=== PATIENT | male | born 1965 | race African-American/Black ===

== ENCOUNTER 2019-03-21 21:56 | Inpatient (IN) ==
[2019-03-21] MEDS ORDERED: DUONEB (A & A) INH ONE ×3 (22:10→23:02)
[2019-03-21 22:20] LABS: URINE SOURCE CLEAN CATCH
[2019-03-21 22:28] LABS: BILIRUBIN URINE NEGATIVE (NEGATIVE); BLOOD URINE MODERATE (NEGATIVE); COLOR STRAW; GLUCOSE URINE NEGATIVE (NEGATIVE); KETONE URINE NEGATIVE (NEGATIVE); LEUKOCYTES URINE NEGATIVE (NEGATIVE); NITRITE URINE NEGATIVE (NEGATIVE); PH URINE 6.5; PROTEIN URINE 30 mg/dL (NEGATIVE); SP GRAVITY URINE 1.007; TURBIDITY URINE CLEAR (CLEAR); UROBILINOGEN URINE NORMAL (NORMAL)
[2019-03-21 22:29] LABS: UR EPITHELIAL CELLS <10 /HPF (<10); URINE BACTERIA NEGATIVE /HPF; URINE WBC <10 /HPF (<10)
[2019-03-21] MEDS ORDERED: SOLU-MEDROL IV ONE (23:02)
[2019-03-21] MEDS ORDERED: PULMICORT INH ONE (23:02)
[2019-03-22] LABS: ALLEN TEST YES; BE -0.4 mmoll (-3.0-3.0); BLOOD TYPE ARTERIAL; HCO3-(ACT) 24.5 mmoll (20.0-26.0); METHB 0.4 % (0.0-1.5); O2(CT) 17.9 mL/dL (15.0-23.0); O2HB 91.7 % (95.0-99.0); PCO2(98.6) 45 mmHg (35-45); PO2(98.6) 61 mmHg (60-100); SAMPLE BLOOD; SAO2 95.5 % (95.0-100.0); THB 13.9 g/dL (11.5-17.4); pH(98.6) 7.36 (7.35-7.45)
[2019-03-22 00:01] LABS: MODALITY CANNULA
[2019-03-22 01:25] LABS: BASO# 0.03 X1000 (0.0-0.2); BASO% 0.5 % (0.0-0.8); EOS% 7.2 % (0.0-10.0); HEMATOCRIT 41.2 % (42.0-52.0); HEMOGLOBIN 14.1 g/dL (14.0-18.0); LYMPH# 1.38 X1000 (1.2-3.4); LYMPH% 24.7 % (20.5-51.1); MCH 28.8 PG (27-31); MCHC 34.2 g/dL (33-37); MCV 84.1 FL (81-99); MONO# 0.47 X1000 (0.11-0.59); MONO% 8.4 % (1.7-9.3); MPV 9.9 FL (7.4-10.4); NEUT% 59.2 % (42.2-75.2); PLT 237 X1000 (130-400); RDW 14.1 % (11.5-14.5); WBC 5.58 X1000 (4.8-10.8)
[2019-03-22 01:51] LABS: AGAP 14; ALB/GLOB RATIO 1.4; ALBUMIN 4.5 g/dL (3.5-5.0); ALKALINE PHOSPHATASE 97 U/L (32-122); BUN 11 mg/dL (8-22); CALCIUM 9.7 mg/dL (8.8-10.2); CHLORIDE 104 mmol/L (98-107); COSMO 279; CREATININE 0.8 mg/dL (0.7-1.2); ESTIMATED GFR > 60; GLUCOSE 100 mg/dL (70-104); GOT 31 U/L (10-34); GPT 24 U/L (10-44); POTASSIUM 4.3 mmol/L (3.5-5.1); SODIUM 140 mmol/L (136-145); TCO2 22 mmol/L (25-35); TOTAL BILIRUBIN 0.46 mg/dL (0.20-1.00); TOTAL PROTEIN 7.8 g/dL (6.3-8.3)
--- NOTE | 2019-03-22 02:17 | PROVIDER DOCUMENTATION ---
This chart was entered by Yuliya Rajput Scribe, acting as scribe for Heidi Samaniego MD. HPI-Respiratory General - General Chief Complaint: Shortness of Breath Stated Complaint: BREATHING ISSUES/COPD Time Seen by Provider: 03/21/19 22:27 Source: patient Allergies/Adverse Reactions: Patient Allergies Allergy/AdvReac Type Severity Reaction Status Date / Time Penicillins Allergy Unknown Verified 03/22/19 00:08 Home Medications: Home Medication List Medication Instructions Recorded Confirmed Last Taken Type Albuterol [Albuterol Neb] 1 vial INH Q6HR PRN 03/22/19 03/22/19 Unknown History Amlodipine [Norvasc] 1 tab PO QPM 03/22/19 03/22/19 Unknown History Atorvastatin Calcium [Lipitor] 1 tab PO QPM 03/22/19 03/22/19 Unknown History Levalbuterol Inhaler [Xopenex Hfa] 2 puff INH BID PRN 03/22/19 03/22/19 Unknown History Montelukast [Singulair] 1 tab PO QPM 03/22/19 03/22/19 Unknown History Umeclidinium/Vilanterol [Anoro 1 puff INH DAILY 03/22/19 03/22/19 Unknown History Ellipta 62.5-25 Mcg INH] - History of Present Illness-Resp Nature of Presenting Problem: Pt is 53/M presenting to ED w/ SOB and cough that is worse w/ exertion. He has also has accompanied h/a and chills. He has been receiving breathing treatments, but sts that they are no longer really helping. Pt has COPD and admits to smoking a few cigarettes a day until recently. He is currently an inmate and he states that the retirement is not able to give him the round the clock breathing treatments but he states he takes them as often as he can. He states his cough is mostly dry but sometimes productive with white sticky mucous. Onset/Duration: reports: 3 days ago Timing: reports: still present Cough Quality/Degree: reports: moderate, productive cough (states not a lot of production, but is white and thick when it is.) Episode Frequency: chronic episodes Current Respiratory Medication Therapy: Initiated none Modifying Factors: improves with: exertion Associated Symptoms: reports: cough, heart racing, short of breath. denies: chest pain/soreness Review of Systems - Adult - REVIEW OF SYSTEMS - ADULT Constitutional: reports: see HPI, chills Eyes: reports: no symptoms reported Ears, Nose, Mouth & Throat: reports: no symptoms reported Cardiovascular: denies: chest pain Respiratory: reports: chronic cough, shortness of breath, wheezing Gastrointestinal: reports: no symptoms reported. denies: abdominal pain, diarrhea, nausea, vomiting Genitourinary: reports: no symptoms reported Musculoskeletal: reports: no symptoms reported Integumentary: reports: no symptoms reported Neurological: reports: no symptoms reported. denies: dizziness/vertigo, headache/migraines Psychiatric: reports: no symptoms reported Endocrine: reports: no symptoms reported Hematologic/Lymphatic: reports: no symptoms reported Allergic/Immunologic: reports: no symptoms reported All Other Systems: Reviewed and Negative Past History - Adult - PAST MEDICAL HISTORY-ADULT Review of Records: reports: Old Records Reviewed, Nursing Assessment Review, Medications Reviewed, Social history reviewed & non-contributory. Cardiovascular: reports: HTN, other (hypercholesterolemia) Respiratory: reports: asthma, COPD Gastrointestinal: reports: GERD Psychiatric: reports: anxiety, depression - PRIOR SURGERIES/PROCEDURES Surgical/Procedure History: reports: other (right ear). denies: cardiac stent (but has had a heart cath) - PRIOR HOSPITALIZATIONS Prior Hospitalizations: reports: for similar symptoms - IMMUNIZATION STATUS Childhood Immunizations: See Nurse Assessment Flu Vaccine: See Nurse Assessment - FAMILY HISTORY Family History: reviewed, not pertinent - SOCIAL HISTORY Smoking: cigarettes, less than 1 pack/day Substance Use: none/never Alcohol Use Frequency: never Living Situation: other (inmate) Physical Exam-General - PHYSICAL EXAM-ADULT Initial Vital Signs Reviewed: Yes - CONSTITUTIONAL General Appearance: appears well, alert, mild distress - EYES Eyes: PERRL/EOMI, pink conjunctivae - HEAD, EARS, NOSE, MOUTH & THROAT HENMT: normocephalic/atraumatic, moist mucous membranes, normal ENT inspection - NECK Neck: non-tender, full range of motion, supple, normal inspection - RESPIRATORY Respiratory: chest non-tender, respiratory distress (mild), accessory muscle use , wheezing (diffuse moderate wheezing), increased rate (25) - CARDIOVASCULAR Cardiovascular: no murmur, tachycardia (110) - GASTROINTESTINAL (ABDOMEN) Abdominal Exam: normal bowel sounds, non tender, soft - LYMPHATIC Lymphatic: no adenopathy - MUSCULOSKELETAL Back Exam: normal inspection, no vertebral tenderness Extremity: normal range of motion, non-tender, normal gait, normal inspection - SKIN Integumentary: normal color, warm/dry - NEUROLOGIC Neurologic: grossly normal - PSYCHIATRIC Psych/Mental Status: normal mood/affect, oriented x 3 Progress - PLAN OF CARE/RESULTS Progress/Plan/Lab Results: Vital Signs - 8 hr 03/21/19 22:00 03/21/19 22:13 03/21/19 22:15 Temperature 97.7 F Pulse Rate 110 H 103 H 110 H Respiratory Rate 25 H 25 H 25 H Blood Pressure 167/100 135/103 O2 Sat by Pulse Oximetry 96 100 100 03/21/19 22:30 03/21/19 22:33 03/21/19 23:02 Temperature Pulse Rate 115 H 122 H 103 H Respiratory Rate 24 30 H 23 Blood Pressure 159/112 136/112 O2 Sat by Pulse Oximetry 100 99 98 03/21/19 23:30 03/21/19 23:32 03/21/19 23:40 Temperature Pulse Rate 126 H 117 H 117 H Respiratory Rate 24 23 27 H Blood Pressure 123/98 O2 Sat by Pulse Oximetry 100 100 97 03/22/19 00:00 03/22/19 00:02 03/22/19 00:32 Temperature Pulse Rate 130 H 111 H 103 H Respiratory Rate 27 H 24 18 Blood Pressure 123/100 143/99 O2 Sat by Pulse Oximetry 97 96 99 03/22/19 01:20 03/22/19 01:30 03/22/19 01:40 Temperature Pulse Rate 95 H 101 H 106 H Respiratory Rate 21 20 19 Blood Pressure O2 Sat by Pulse Oximetry 100 100 98 03/22/19 01:50 03/22/19 02:00 03/22/19 02:02 Temperature Pulse Rate 105 H 102 H 101 H Respiratory Rate 19 23 19 Blood Pressure 125/101 O2 Sat by Pulse Oximetry 96 96 98 03/22/19 02:10 03/22/19 02:20 03/22/19 02:30 Temperature Pulse Rate 100 H 95 H 88 Respiratory Rate 26 H 21 21 Blood Pressure O2 Sat by Pulse Oximetry 97 99 99 03/22/19 02:32 03/22/19 03:02 03/22/19 03:32 Temperature Pulse Rate 100 H 94 H 84 Respiratory Rate 21 22 20 Blood Pressure 118/90 131/100 150/93 O2 Sat by Pulse Oximetry 99 98 100 03/22/19 04:02 Temperature Pulse Rate 79 Respiratory Rate 16 Blood Pressure 130/85 O2 Sat by Pulse Oximetry 99 Laboratory Results - last 24 hr 03/21/19 03/22/19 03/22/19 22:14 00:36 00:45 WBC 5.58 RBC 4.90 Hgb 14.1 Hct 41.2 L MCV 84.1 MCH 28.8 MCHC 34.2 RDW Std Deviation 14.1 Plt Count 237 MPV 9.9 Immature Gran % (Auto) 0.0 Neut % (Auto) 59.2 Lymph % (Auto) 24.7 [place] % (Auto) 8.4 Eos % (Auto) 7.2 Baso % (Auto) 0.5 Immature Gran # (Auto) 0.00 Neut # (Auto) 3.30 Lymph # (Auto) 1.38 [place] # (Auto) 0.47 Eos # (Auto) 0.40 Baso # (Auto) 0.03 Specimen Type ARTERIAL Sample Site L BRACHIAL pH 7.36 pCO2 45 pO2 61 HCO3 24.5 Base Excess -0.4 Oxyhemoglobin 91.7 L ABG O2 Sat (Calculated) 17.9 ABG O2 Saturation 95.5 ABG Carboxyhemoglobin 3.60 H ABG Methemoglobin 0.4 Kai Test YES A-a O2 Difference 125.0 Total Hemoglobin 13.9 Lactate 1.20 Liter Flow 3.5 Blood Gas Modality CANNULA FiO2 % 34.0 Sodium Potassium Chloride Carbon Dioxide Anion Gap BUN Creatinine Estimated GFR/1.73 m2 BUN/Creatinine Ratio Glucose Calculated Osmolality Calcium Total Bilirubin AST ALT Alkaline Phosphatase Troponin T Hxo-M-Iprdmyoyorm Pept Total Protein Albumin Globulin Albumin/Globulin Ratio Urine Source CLEAN CATCH Urine Color STRAW Urine Turbidity CLEAR Urine pH 6.5 Ur Specific [place] 1.007 Urine Protein 30 A Ur Glucose (Stick) NEGATIVE Ur Ketones (Stick) NEGATIVE Urine Blood MODERATE A Urine Nitrite NEGATIVE Urine Bilirubin NEGATIVE Urobilinogen Dipstick NORMAL Urine Leukocytes NEGATIVE Urine WBC (Auto) <10 Urine RBC (Auto) 10-20 A U Epithel Cells (Auto) <10 Urine Bacteria (Auto) NEGATIVE 03/22/19 03/22/19 03/22/19 00:45 00:45 00:45 WBC RBC Hgb Hct MCV MCH MCHC RDW Std Deviation Plt Count MPV Immature Gran % (Auto) Neut % (Auto) Lymph % (Auto) [place] % (Auto) Eos % (Auto) Baso % (Auto) Immature Gran # (Auto) Neut # (Auto) Lymph # (Auto) [place] # (Auto) Eos # (Auto) Baso # (Auto) Specimen Type Sample Site pH pCO2 pO2 HCO3 Base Excess Oxyhemoglobin ABG O2 Sat (Calculated) ABG O2 Saturation ABG Carboxyhemoglobin ABG Methemoglobin Kai Test A-a O2 Difference Total Hemoglobin Lactate Liter Flow Blood Gas Modality FiO2 % Sodium 140 Potassium 4.3 Chloride 104 Carbon Dioxide 22 L Anion Gap 14 BUN 11 Creatinine 0.8 Estimated GFR/1.73 m2 > 60 BUN/Creatinine Ratio 14 Glucose 100 Calculated Osmolality 279 Calcium 9.7 Total Bilirubin 0.46 AST 31 ALT 24 Alkaline Phosphatase 97 Troponin T < 0.010 Opk-W-Peezlghcndf Pept 121 Total Protein 7.8 Albumin 4.5 Globulin 3.3 Albumin/Globulin Ratio 1.4 Urine Source Urine Color Urine Turbidity Urine pH Ur Specific [place] Urine Protein Ur Glucose (Stick) Ur Ketones (Stick) Urine Blood Urine Nitrite Urine Bilirubin Urobilinogen Dipstick Urine Leukocytes Urine WBC (Auto) Urine RBC (Auto) U Epithel Cells (Auto) Urine Bacteria (Auto) Orders Category Date Time Status CHEST-PORTABLE [RAD] Stat Exams 03/21/19 23:02 Taken ABG [RESP] Routine Lab 03/21/19 23:02 Completed CBC WITH ELECTRONIC DIFF [HEME] Stat Lab 03/22/19 00:45 Completed COMPREHENSIVE METABOLIC PANEL [CHEM] Stat Lab 03/22/19 00:45 Completed PRO B-NATRIURETIC PEPTIDE Stat Lab 03/22/19 00:45 Completed TROPONIN T Stat Lab 03/22/19 00:45 Completed UA [URINALYSIS W/POSS RFLX CULT] [URINALYSIS] Stat Lab 03/21/19 22:14 Completed Albuterol 2.5MG/Ipratrop 0.5MG [Duoneb (A & A)] Med 03/21/19 22:10 Discontinued 3 ml INH NOW ONE Albuterol 2.5MG/Ipratrop 0.5MG [Duoneb (A & A)] Med 03/21/19 22:12 Discontinued 3 ml INH NOW ONE Albuterol 2.5MG/Ipratrop 0.5MG [Duoneb (A & A)] Med 03/21/19 23:02 Discontinued 3 ml INH NOW ONE Budesonide [Pulmicort] Med 03/21/19 23:02 Discontinued 0.5 mg INH NOW ONE Methylprednisolone Sod Succ [Solu-Medrol] Med 03/21/19 23:02 Discontinued 125 mg IV NOW ONE Aerosol Treatments Routine Oth 03/21/19 22:11 Completed Aerosol Treatments Routine Oth 03/21/19 22:12 Completed Aerosol Treatments Routine Oth 03/21/19 23:03 Completed Aerosol Treatments Stat Oth 03/21/19 22:11 Completed Aerosol Treatments Stat Oth 03/21/19 22:12 Completed Aerosol Treatments Stat Oth 03/21/19 23:03 Completed EKG [EKG] Stat Ther 03/21/19 22:04 Ordered Transfer/Admit Order [TRANSFER] Routine Transfer 03/22/19 02:54 Ordered Patient with normal ABGs but poor air movement and wheezing bilaterally moderately. He is still tachypneic and appears to be working to breathe despite multiple breathing treatments and steroids. SPoke to Dr Collier, pet adoption counselor for hospitalist who accepted patient for admission. Further orders to be placed by hospitalist team. Result Diagrams: 03/22/19 00:45 03/22/19 00:45 - EKG 1 Time of EKG reading by physician:: 22:12 EKG Read and Signed by:: Heidi Samaniego EKG Interpretation (*Must complete 3 of following elements*): Abnormal Rate: 102 Rhythm: sinus tachycardia [place]: normal QRS: LVH ST Wave: normal - XRAY 1 XRAY Study: Chest (emphesematous lung changes with possible interstitial edema vs atlectasis) Comparison with other Films: changes noted (worsenined since 10/2015) - CONSULTS/PCP/HOSPITALIST Notification #1 *Consult/PCP/Hospitalist*: Dr Collier Consult Disposition: Admit Departure - Departure Date of Disposition Decision: 03/22/19 Time of Disposition Decision: 03:42 DIAGNOSIS: COPD exacerbation, Tachypnea Disposition: ADMITTED INPATIENT 09 Certified Medical Emergency: Emergent Condition: Stable - Critical Care Note This patient required my direct & personal management of CC.: Yes Total Time (mins): 75 Critical Care Statement: This patient required my direct personal management to treat or rule out processes, the absence of which, could potentiallly result in sudden, clinically significant life or limb threatening deterioration. Attestation - Physician/ MAISHA Attestation Patient care was provided by Advanced Practice Provider:: No The physician spent face to face time with patient:: Yes Advanced Practice Provider documentation review:: Supervising physician onsite and consulted in the evaluation and care of this patient. The physician did have a face to face encounter with the patient. This chart was documented by the indicated scribe, (Yuliya Rajput, [place]) and accurately reflects the services I performed and decisions made by me, Heidi Samaniego MD, as attested by the provider's signature.
--- NOTE | 2019-03-22 04:51 | HISTORY AND PHYSICAL ---
PRIMARY CARE PHYSICIAN: None. CHIEF COMPLAINT: Shortness of breath x3 days. HISTORY OF PRESENTING ILLNESS: A 53-year-old male with a history of COPD and hypertension who is apparently a senior care inmate. Was brought to the emergency department due to worsening shortness of breath. Apparently, he was given his inhalers at the facility, however, he did have any improvement. He was seen in the ED. He was still short of breath and due to his presenting symptoms it was thought that he would need admission for further management. At the time of my examination, patient denied any headache, fever, chills, chest pain, hemoptysis, melena, weight changes, but complained of cough and shortness. PAST MEDICAL HISTORY: Includes COPD, hypertension. PAST SURGICAL HISTORY: Right ear surgery. ALLERGIES: Penicillin. CURRENT MEDICATIONS: He does not recall and the nursing staff will reconcile. SOCIAL HISTORY: Ten pack years history of smoking. History of alcohol use in the past. History of illicit drug use including crack cocaine. FAMILY HISTORY: Positive for coronary disease in father. REVIEW OF SYSTEMS: Fourteen point review of systems as listed in HPI. Other systems negative. PHYSICAL EXAMINATION: GENERAL: Cooperative, friendly male. He is resting comfortably now. VITAL SIGNS: Temperature 97.7 degrees, pulse 110, respirations 25, blood pressure 167/100. HEENT: Atraumatic, normocephalic. Extraocular movements intact. PERRLA. NECK: No masses. CHEST: Scattered wheezes. CARDIOVASCULAR: Regular rate and rhythm. ABDOMEN: Soft, positive bowel sounds. EXTREMITIES: No edema. NEUROLOGIC: Awake, alert, oriented x3. GENITOURINARY: No bladder distention. SKIN: Warm. LABORATORIES AND STUDIES: WBC 5.58, hemoglobin 14.1, hematocrit 41.2, platelets 237,000. Sodium 140, potassium 4.3, chloride 104, CO2 of 22, BUN is 11, creatinine 0.8, glucose 100. Troponin 0.010. ASSESSMENT: This is a 53-year-old male with a history of chronic obstructive pulmonary disease and hypertension who was brought to the emergency department due to worsening shortness of breath for the past 3 days. He was evaluated in the emergency department. Due to his presenting symptoms, he will need admission for further management. 1. Acute chronic obstructive pulmonary disease exacerbation. 2. Hypertension. PLAN: 1. We will admit patient to medical floor with telemetry. 2. Continue with [facility], IV Solu-Medrol, IV antibiotics and mucolytic agent. 3. We will monitor blood pressure. Resume antihypertensive agent. 4. Put patient on DVT prophylaxis with SCD. 5. We will continue to follow, and reassess and make further recommendation based on patient's clinical course. cc: Sandip Collier MD
[2019-03-22] MEDS: LEVAQUIN 500 MG/D5W 500 MG/100 ML IVPB IV SCH (05:33)
[2019-03-22] MEDS: MUCINEX PO SCH ×2 (05:33→16:53)
--- NOTE | 2019-03-22 06:58 | EKG Report ---
Test Performed on : 03/21/2019 10:09:50 PM Test Reason : SOB Blood Pressure : / mmHG Vent. Rate : 102 BPM Atrial Rate : 102 BPM P-R Int : 136 ms QRS Dur : 078 ms QT Int : 326 ms P-R-T Axes : 076 028 076 degrees QTc Int : 424 ms Sinus tachycardia. Otherwise normal ECG When compared with ECG of 06-MAY-2016 23:22, Minimal criteria for Inferior infarct are no longer present Nonspecific T wave abnormality no longer evident in Lateral leads Unconfirmed Result
--- NOTE | 2019-03-22 07:40 | Diag Imaging Result Doc PS360 ---
EXAM: CHEST-PORTABLE INDICATION: COPD TECHNIQUE: One view COMPARISON: 11/19/2015 FINDINGS: The lungs are hyperinflated suggesting COPD, stable. The lungs are grossly clear. There is no discrete pleural fluid collection or pneumothorax. The cardiomediastinal silhouette and central vasculature are grossly unremarkable. IMPRESSION: Stable COPD changes. No definite acute pathology by plain radiograph. Electronically signed by Varun Shay 03/22/2019 7:38 AM
[2019-03-22] MEDS: DUONEB (A & A) INH SCH ×7 (07:45→23:42)
[2019-03-22] MEDS: SOLU-MEDROL IV SCH ×2 (08:45→16:54)
--- NOTE | 2019-03-22 12:03 | PROGRESS NOTE ---
DATE: 03/22/2019 SUBJECTIVE: Today Mr. Thorne continues to complain of shortness of breath and cough. No chest pain. OBJECTIVE: Vital signs: Blood pressure is 144/101, pulse of 95, respiration is 18, temperature 97.9 degrees, patient is saturating 99% on 3 L. On general exam, Mr. Thorne is a 53-year-old gentleman. He was in bed, no distress. Mucosa is pink and moist. Anicteric. Acyanotic. Neck is supple. Respiratory System: Air entry is bilaterally reduced. There is diffuse end-expiratory rhonchi in both lung teran with wheezing. No crackles. There is a prolonged expiratory phase of respiration. Cardiovascular: Regular rate and rhythm. No murmurs, no rubs, no gallops. Gastrointestinal: Abdomen is soft, nontender. Bowel sounds present. Extremities: No pedal edema. Central Nervous System: Patient is awake, alert, and oriented. There is no focal neurological deficit. DIAGNOSTIC STUDIES: A chest x-ray from yesterday shows stable COPD. Laboratory data has been reviewed unremarkable. ASSESSMENT: 1. Acute hypoxemic respiratory failure secondary to chronic obstructive pulmonary disease exacerbation. The patient is on nasal cannula oxygenation. 2. Chronic obstructive pulmonary disease exacerbation. We will continue with standard care, including steroids, antibiotics, and bronchodilation therapy. 3. Hypertension. 4. Current inmate. In general, Mr. Thorne continues to be remarkably symptomatic. We are going to continue with the current antimicrobial and standard of care. Respiratory Therapy is on board. We are going to continue their recommendations, as well. cc: Rajeev Sanabria MD
[2019-03-22] MEDS: NORVASC PO SCH (21:34)
[2019-03-22] MEDS: LIPITOR PO SCH (21:34)
[2019-03-22] MEDS: SINGULAIR PO SCH (21:34)
[2019-03-23] MEDS: SOLU-MEDROL IV SCH ×3 (00:02→17:38)
[2019-03-23] MEDS: DUONEB (A & A) INH SCH ×6 (03:20→22:30)
[2019-03-23] MEDS: LEVAQUIN 500 MG/D5W 500 MG/100 ML IVPB IV SCH (04:03)
[2019-03-23] MEDS: MUCINEX PO SCH ×2 (04:48→17:38)
[2019-03-23 07:46] LABS: BASO# 0.01 X1000 (0.0-0.2); BASO% 0.1 % (0.0-0.8); HEMATOCRIT 41.1 % (42.0-52.0); HEMOGLOBIN 14.1 g/dL (14.0-18.0); IMM GRAN# 0.04 X1000 (0.0-0.04); IMM GRAN% 0.3 % (0.0-0.5); LYMPH# 0.85 X1000 (1.2-3.4); LYMPH% 5.9 % (20.5-51.1); MCH 28.9 PG (27-31); MCHC 34.3 g/dL (33-37); MCV 84.2 FL (81-99); MONO# 0.55 X1000 (0.11-0.59); MONO% 3.8 % (1.7-9.3); MPV 10.4 FL (7.4-10.4); NEUT# 12.97 X1000 (1.4-6.5); NEUT% 89.9 % (42.2-75.2); PLT 257 X1000 (130-400); RBC 4.88 XMIL (4.7-6.1); RDW 14.1 % (11.5-14.5); WBC 14.42 X1000 (4.8-10.8)
[2019-03-23 08:02] LABS: AGAP 11; BUN 33 mg/dL (8-22); CALCIUM 9.6 mg/dL (8.8-10.2); CHLORIDE 101 mmol/L (98-107); COSMO 280; CREATININE 1.1 mg/dL (0.7-1.2); ESTIMATED GFR > 60; GLUCOSE 140 mg/dL (70-104); POTASSIUM 5.2 mmol/L (3.5-5.1); SODIUM 135 mmol/L (136-145); TCO2 23 mmol/L (25-35)
[2019-03-23 08:22] LABS: BANDS 4 % (0-1); LYMPHS 6 % (21-51); MONO 4 % (1-9); SEGS 86 % (42-75)
--- NOTE | 2019-03-23 15:03 | PROGRESS NOTE ---
DATE: 03/23/2019 SUBJECTIVE: Today, Mr. Thorne refers to be doing fairly the same still coughing and having some wheezing. OBJECTIVE: His current vitals show blood pressure 113/74, pulse of 93, respirations 16, and temperature 97.9 degrees.General: Mr. Thorne is a 53-year-old gentleman. He is in bed. He was getting a nebulization treatment. HEENT: Mucosa is pink and moist. Anicteric. Acyanotic. Neck: Supple. Chest: Air entry is bilaterally reduced. There is still diffuse expiratory rhonchi and wheezing. Cardiovascular: Regular rate and rhythm. Abdomen: Soft. Extremities: No pedal edema. DIRECTOR DIGITAL ADVERTISING: Patient is awake, alert, and oriented. LABORATORY DATA: WBC is 14.42, hemoglobin is 14.1, and platelet count of 257,000. Chemistry is also reviewed, potassium is 5.2. Rest of chemistry is unremarkable. IMAGING STUDIES: No new imaging studies today. MEDICATIONS: The patient's medications have all been reviewed. ASSESSMENT: 1. Acute hypoxemic respiratory failure secondary to COPD exacerbation with ongoing tobacco use. 2. Hypertension, currently controlled . The patient seems to be showing some steady progress. We are going to continue with steroids, antibiotics, bronchodilation therapy, and also on incentive spirometer. He has been advised to sit up more in the chair and walk around to get the lungs expanded. cc: Rajeev Sanabria MD MTDD
[2019-03-23] MEDS: LIPITOR PO SCH (21:35)
[2019-03-23] MEDS: SINGULAIR PO SCH (21:35)
[2019-03-23] MEDS: NORVASC PO SCH (21:35)
[2019-03-24] MEDS: SOLU-MEDROL IV SCH ×3 (01:11→17:44)
[2019-03-24] MEDS: DUONEB (A & A) INH SCH ×6 (03:41→23:20)
[2019-03-24] MEDS: LEVAQUIN 500 MG/D5W 500 MG/100 ML IVPB IV SCH (04:15)
[2019-03-24] MEDS: MUCINEX PO SCH ×2 (04:15→17:44)
[2019-03-24 10:46] LABS: AGAP 11; ALBUMIN 3.9 g/dL (3.5-5.0); BUN 29 mg/dL (8-22); CALCIUM 9.3 mg/dL (8.8-10.2); CHLORIDE 101 mmol/L (98-107); COSMO 287; CREATININE 0.9 mg/dL (0.7-1.2); ESTIMATED GFR > 60; GLUCOSE 189 mg/dL (70-104); PHOSPHORUS 2.3 mg/dL (2.7-4.5); POTASSIUM 4.3 mmol/L (3.5-5.1); SODIUM 138 mmol/L (136-145); TCO2 26 mmol/L (25-35)
--- NOTE | 2019-03-24 14:18 | PROGRESS NOTE ---
DATE: 03/24/2019 SUBJECTIVE: This morning, Mr. Thorne refers to be feeling a little better. He thinks his shortness of breath is improving. He was able to go and take a shower today. OBJECTIVE: Vital signs: Blood pressure is 131/77, pulse, respiration is 18, temperature 97.9 degrees patient is saturating 100% on room air. On general exam, Mr. Thorne is a 53-year-old gentleman. He is in bed in no distress. Mucosa is pink and moist. Anicteric. Acyanotic. Neck is supple. Respiratory System: Air entry is bilaterally reduced. There are still diffuse expiratory rhonchi and wheezing. There is prolonged expiratory phase of respiration, but there are no crackles. Cardiovascular: Regular rate and rhythm. No murmurs, no rubs, no gallops. Gastrointestinal: Abdomen is soft, nontender. Bowel sounds present. Extremities: No pedal edema. Central Nervous System: Patient is awake, alert, and oriented. There is no focal neurological deficit. DIAGNOSTIC STUDIES: No CBC for today. Chemistry looks unremarkable. No new imaging studies. MEDICATION: Patient's medications have all been reviewed today and no changes. ASSESSMENT: 1. Acute hypoxemic respiratory failure secondary to chronic obstructive pulmonary disease exacerbation. The patient continues to be needing oxygen every now and then. 2. Chronic obstructive pulmonary disease exacerbation. Patient is on standard of care, including antibiotics, steroids, and bronchodilation therapy. 3. Ongoing tobacco use before hospitalization. Cessation has been advised. 4. Hypertension is controlled. 5. Deep vein thrombosis prophylaxis with Lovenox. In general, I think Mr. Thorne is doing better. He is progressively improving, but he is still bronchospastic. I think he will need at least another 24 to 48 hours of acute care to be able to go back home. cc: Rajeev Sanabria MD
[2019-03-24] MEDS: SINGULAIR PO SCH (21:02)
[2019-03-24] MEDS: LIPITOR PO SCH (21:02)
[2019-03-24] MEDS: NORVASC PO SCH (21:02)
[2019-03-25] MEDS: SOLU-MEDROL IV SCH ×4 (01:51→20:34)
[2019-03-25] MEDS: DUONEB (A & A) INH SCH ×6 (03:20→23:35)
[2019-03-25] MEDS: LEVAQUIN 500 MG/D5W 500 MG/100 ML IVPB IV SCH (06:15)
[2019-03-25] MEDS: MUCINEX PO SCH ×2 (06:15→17:09)
--- NOTE | 2019-03-25 07:38 | Diag Imaging Result Doc PS360 ---
EXAM: CHEST-PORTABLE INDICATION: dyspnea TECHNIQUE: One view COMPARISON: 03/21/2019 FINDINGS: The lungs remain grossly clear. No new consolidation is identified. There is no discrete pleural fluid collection or pneumothorax. Cardiac silhouette is stable. IMPRESSION: Stable chest with no definite acute pathology. Electronically signed by Varun Shay 03/25/2019 7:35 AM
[2019-03-25 07:40] LABS: BASO# 0.01 X1000 (0.0-0.2); BASO% 0.1 % (0.0-0.8); EOS# 0.01 X1000 (0.0-0.7); EOS% 0.1 % (0.0-10.0); HEMATOCRIT 39.7 % (42.0-52.0); HEMOGLOBIN 13.3 g/dL (14.0-18.0); IMM GRAN# 0.06 X1000 (0.0-0.04); IMM GRAN% 0.4 % (0.0-0.5); LYMPH# 1.21 X1000 (1.2-3.4); LYMPH% 7.1 % (20.5-51.1); MCH 28.7 PG (27-31); MCHC 33.5 g/dL (33-37); MCV 85.6 FL (81-99); MONO# 1.27 X1000 (0.11-0.59); MONO% 7.5 % (1.7-9.3); MPV 10.4 FL (7.4-10.4); NEUT# 14.47 X1000 (1.4-6.5); NEUT% 84.8 % (42.2-75.2); PLT 247 X1000 (130-400); RBC 4.64 XMIL (4.7-6.1); RDW 14.7 % (11.5-14.5); WBC 17.03 X1000 (4.8-10.8)
[2019-03-25] MEDS: LOVENOX SUBQ SCH (08:17)
[2019-03-25 08:24] LABS: AGAP 11; ALBUMIN 3.9 g/dL (3.5-5.0); BUN 29 mg/dL (8-22); CALCIUM 9.3 mg/dL (8.8-10.2); CHLORIDE 100 mmol/L (98-107); COSMO 284; CREATININE 0.9 mg/dL (0.7-1.2); ESTIMATED GFR > 60; GLUCOSE 144 mg/dL (70-104); PHOSPHORUS 3.3 mg/dL (2.7-4.5); POTASSIUM 4.3 mmol/L (3.5-5.1); SODIUM 138 mmol/L (136-145); TCO2 27 mmol/L (25-35)
--- NOTE | 2019-03-25 13:06 | PROGRESS NOTE ---
DATE: 03/25/2019 SUBJECTIVE: This morning Mr. Thorne refers to be feeling better. He is still coughing, and he said he is hardly bringing up anything, but his breathing has significantly improved. OBJECTIVE: Vital signs: Blood pressure 147/75, pulse 74, respirations 15, and temperature 97.6 degrees. General: Mr. Thorne is a 53-year-old [place] gentleman. He is in bed in no distress. Mucosa is pink and moist. Anicteric. Acyanotic. Neck: Supple. Chest: Air entry is bilaterally reduced. There is still some end expiratory diffuse rhonchi and wheezing, but sounds a lot better than yesterday. Cardiovascular: Regular rate and rhythm. Abdomen: Soft, nontender. Bowel sounds present. STUDIO RECEPTIONIST: Patient is awake, alert, and oriented. No focal neurological deficit. LABORATORY DATA: WBC is up to 17.03. We think this is because of the steroids. Chemistry is completely normal. DIAGNOSTIC STUDIES: A chest x-ray this morning shows stable chest. No definite acute pathology. CURRENT MEDICATIONS: All have been reviewed. I have reduced the steroids to just 40 IV q.12 h. ASSESSMENT: 1. Acute hypoxemic respiratory failure on presentation secondary to COPD exacerbation. The patient continues to be needing oxygen therapy. We are going to evaluate him tomorrow morning to see if he is going to need that going home as well. 2. COPD in exacerbation. Patient is on steroids, antibiotics, and bronchodilation therapy. Respiratory therapy is on board. 3. Tobacco use before hospitalization. The patient has been counseled. 4. Hypertension is controlled. 5. DVT prophylaxis with Lovenox. This morning Mr. Thorne is doing a little better. We are going to add Mucomyst inhalation to help break down some of the chest tightness and see if we can improve his symptoms. We will also continue with the current standard of care. Mr. Thorne is currently an inmate. There are 2 officers at the bedside with him. He is currently on Lovenox for DVT prophylaxis, and I would advise not to put any shackles on him just because of the risk that he could potentially bleed. cc: Rajeev Sanabria MD
[2019-03-25] MEDS: MUCOMYST 20% INH SCH (19:55)
[2019-03-25] MEDS: NORVASC PO SCH (20:34)
[2019-03-25] MEDS: LIPITOR PO SCH (20:34)
[2019-03-25] MEDS: SINGULAIR PO SCH (20:34)
[2019-03-26] MEDS: DUONEB (A & A) INH SCH ×4 (05:24→16:04)
[2019-03-26] MEDS: LEVAQUIN 500 MG/D5W 500 MG/100 ML IVPB IV SCH (06:11)
[2019-03-26] MEDS: MUCINEX PO SCH (06:11)
[2019-03-26] MEDS: MUCOMYST 20% INH SCH (08:13)
[2019-03-26] MEDS: SOLU-MEDROL IV SCH (08:38)
[2019-03-26] MEDS: LOVENOX SUBQ SCH (08:38)
[2019-03-26 11:32] VITALS: BP 122/80
--- NOTE | 2019-03-27 12:37 | DISCHARGE SUMMARY ---
ADMISSION DATE: 03/22/2019 DISCHARGE DATE: 03/26/2019 CONSULTATION DURING THIS ADMISSION: None. IMAGING STUDIES OF SIGNIFICANCE: 1. A chest x-ray on admission did show stable chronic obstructive pulmonary disease changes. 2. A repeat chest x-ray shows stable chest, no definite pathology. ADMISSION DIAGNOSIS: 1. Acute on chronic chronic obstructive pulmonary disease. 2. Hypertension. 3. Diabetes. DIAGNOSIS AT THE TIME OF DISCHARGE: 1. Acute hypoxemic respiratory failure secondary to chronic obstructive pulmonary disease exacerbation. 2. Chronic obstructive pulmonary disease in severe acute exacerbation. 3. Tobacco use and abuse before hospitalization. 4. Hypertension. DISCHARGE MEDICATIONS: 1. Amlodipine 5 mg p.o. daily. 2. Atorvastatin 20 mg p.o. daily. 3. Xopenex inhaler. 4. Albuterol nebulizers p.r.n. 5. Anoro Ellipta inhaler. 6. Prednisone 20 mg p.o. daily. 7. Levaquin (levofloxacin) 500 p.o. daily for 7 days. PRESENTING COMPLAINT: Shortness of breath for 3 days. HISTORY OF PRESENT ILLNESS: Mr. Thorne is a 53-year-old gentleman who is known to have COPD, hypertension, a [facility] inmate, who came to the emergency department because of shortness of breath. The patient was evaluated was found to be in severe bronchospasm, COPD exacerbation, was admitted for further medical care. HOSPITAL COURSE: Mr. Thorne was admitted to the medical floor. Was placed on standard of care, including oxygen therapy, antibiotics, steroids, and bronchodilation therapy. Physical Therapy was consulted. Throughout the hospital course, Mr. Thorne continues to show progressive improvement. A chest x- ray which was repeated about 3 or 4 days after hospitalization continues to show no definite pathology, and it was unremarkable. He is currently saturating about 98 in room air. Vitals are stable. His physical exam is benign except for some distant faint wheezing, but otherwise, we think his bronchospasm is significantly improved and that he is okay for discharge today. He has been advised on countless occasions on smoking cessation, and he has also been advised to follow up with a primary care doctor. All of the discharge instructions were discussed with him. COORDINATION TIME: Time spent for discharge is 35 minutes. cc: Rajeev Sanabria MD
== END 2019-03-26 16:39 | disposition home or self-care (01) | DRG 190 ==
LOC: ED 21:56 → SUATTDRO 03-22 04:35 → 3N 03-22 04:35
PROVIDERS: ATTEND Internal Medicine
CPT/HCPCS: 71010; 71045; 80048; 80053; 80069; 81001; 82805; 83880; 84484; 85025; 87070; 87205; 93005; 94640; 94761; 96374; 99285; A9270; J1650; J1956; J2930